=== PATIENT | female | born 1950 ===

== ENCOUNTER 2021-10-26 13:18 | Inpatient (IN) ==
[2021-10-26] MEDS ORDERED: 0.9 % Sodium Chloride 1,000 ML IVC ONE (14:03)
[2021-10-26 14:36] LABS: Hematocrit 35.3 % (35.3-44.9); Hemoglobin 11.5 g/dL (11.5-15.4); Mean Corpuscular HGB Conc 32.6 g/dL (31.6-35.5); Mean Corpuscular Hemoglobin 30.9 pg (28.0-33.3); Mean Corpuscular Volume 94.9 fL (83.0-100.0); Mean Platelet Volume 10.7 fL (9.4-12.4); Platelet Count 268 K/mcL (140-400); Red Blood Count 3.72 M/mcL (3.82-4.97); Red Cell Distribution Width 15.9 % (11.5-14.5); White Blood Count 12.7 K/mcL (4.3-11.1)
[2021-10-26] MEDS ORDERED: 0.9 % Sodium Chloride 500 ML IVC ONE ×2 (14:54→16:03)
[2021-10-26] MEDS ORDERED: Azithromycin 500 MG in D5% in Water 250 ML IVPB ONE (14:55)
[2021-10-26] MEDS ORDERED: cefTRIAXone 1,000 MG in 0.9 % Sodium Chloride Mini Bag 100 ML IVPB STA (14:55)
[2021-10-26 14:58] LABS: Monocytes # 0.1 K/mcL (0.0-1.3); Neutrophils # 10.7 K/mcL (1.6-8.9)
[2021-10-26 14:59] LABS: Platelet Estimate Normal (Normal)
[2021-10-26 15:11] LABS: Amorphous Sediment,Urine Few per hpf (None-Few); Bacteria,Urine Few per hpf (None-Few); Bilirubin,Urine Negative (Negative); Blood,Urine Moderate (Negative); Clarity,Urine Turbid (Clear); Color,Urine Yellow (Yellow); Glucose,Urine (UA) Normal (Normal); Hyaline Casts,Urine Many per lpf (None Seen); Ketones,Urine Negative (Negative); Leukocyte Esterase,Urine Moderate (Negative); Mucus,Urine Few per lpf (None-Few); Nitrite,Urine Negative (Negative); PH,Urine 5.5 pH Units (5.0-8.0); Protein,Urine 50 mg/dL (Neg-Trace); Specific Gravity,Urine 1.024 (1.010-1.025); Squamous Epithelial Cell,Urine Few per hpf (None-Few)
[2021-10-26 15:29] LABS: Alanine Aminotransferase 37 Units/L (7-52); Albumin 3.4 g/dL (3.5-5.7); Albumin/Globulin Ratio 0.9 (1.1-2.2); Alkaline Phosphatase 96 Units/L (34-104); Aspartate Amino Transferase 51 Units/L (13-39); BUN/Creatinine Ratio 24 (6-26); Bilirubin,Direct 0.2 mg/dL (0.0-0.2); Bilirubin,Indirect 0.6 mg/dL (0.0-1.0); Bilirubin,Total 0.8 mg/dL (0.3-1.0); Blood Urea Nitrogen 45 mg/dL (8-23); Calcium 10.7 mg/dL (8.6-10.3); Carbon Dioxide 26 mEq/L (23-29); Chloride 97 mEq/L (98-107); Ethanol < 10 mg/dL (Less than 10); Globulin 3.8 g/dL (2.4-3.5); Glucose 120 mg/dL (70-105); Osmolality,Calculated 303 (280-300); Potassium 4.3 mEq/L (3.5-5.1); Sodium 140 mEq/L (136-145); Total Protein 7.2 g/dL (6.4-8.9); Troponin I < 0.03 ng/mL (< 0.04); eGFR For African Americans 32 (> 60); eGFR For Non-African Americans 26 (> 60)
[2021-10-26 15:39] LABS: Amphetamine Screen,Urine Negative ng/mL (Cutoff=1000); Barbiturate Screen,Urine Negative ng/mL (Cutoff=200); Benzodiazepines Screen,Urine Negative ng/mL (Cutoff=200); Cannabinoid Screen,Urine Negative ng/mL (Cutoff = 50); Cocaine Screen,Urine Negative ng/mL (Cutoff= 300); Opiate Screen,Urine Negative ng/mL (Cutoff=300); Phencyclidine Screen,Urine Negative ng/mL (Cutoff=25)
[2021-10-26 16:31] LABS: Influenza A PCR Negative (Negative); Influenza B PCR Negative (Negative); Resp. Syncytial Virus PCR Negative (Negative)
[2021-10-26 16:32] LABS: SARS-CoV-2 by PCR (In House) Negative (Negative)
[2021-10-26] MEDS: Morphine Sulfate 2 MG/ML SYRINGE IVP PRN (20:07)
[2021-10-27] MEDS: *HR* LORazepam 2 MG/ML VIAL IVP PRN ×4 (01:48→21:26)
[2021-10-27] MEDS: Morphine Sulfate 2 MG/ML SYRINGE IVP PRN ×3 (08:23→21:29)
[2021-10-27] MEDS ORDERED: Ipratropium/Albuterol Neb 3 ML IH PRN (08:48)
[2021-10-27] MEDS: QUEtiapine Fumarate 100 MG TABLET PO SCH ×2 (08:59→19:32)
[2021-10-27] MEDS: QUEtiapine Fumarate 25 MG TABLET PO SCH ×2 (08:59→19:32)
[2021-10-27] MEDS ORDERED: Atropine Sulfate 1% 40 DROP/2 ML BOTTLE SL PRN (10:33)
[2021-10-27] MEDS ORDERED: Haloperidol Lactate 5 MG/ML VIAL IVP PRN (10:52)
[2021-10-27] MEDS ORDERED: cefTRIAXone 1,000 MG in 0.9 % Sodium Chloride Mini Bag 100 ML IVPB SCH (16:00)
[2021-10-28] MEDS: Morphine Sulfate 2 MG/ML SYRINGE IVP PRN ×4 (02:25→20:41)
[2021-10-28] MEDS: *HR* LORazepam 2 MG/ML VIAL IVP PRN ×4 (02:26→20:40)
[2021-10-28] MEDS: *HR* Enoxaparin 30 MG/0.3 ML SYRINGE SQ SCH (05:40)
[2021-10-28] MEDS ORDERED: *HR* Enoxaparin 40 MG/0.4 ML SYRINGE SQ SCH (06:00)
[2021-10-28] MEDS: QUEtiapine Fumarate 25 MG TABLET PO SCH ×2 (07:08→19:24)
[2021-10-28] MEDS: QUEtiapine Fumarate 100 MG TABLET PO SCH ×2 (07:08→19:25)
[2021-10-28] MEDS ORDERED: Acetaminophen IV 500 MG/50 ML BAG IVPB ONE ×2 (08:14→17:26)
[2021-10-28 13:47] LABS: CTX-M ESBL Gene Not Detected (Not Detect); IMP Carbapenem-Resist Gene Not Detected (Not Detect); NDM Carbapenem-Resist Gene Not Detected (Not Detect); OXA-48-like Carbap-Resist Gene Not Detected (Not Detect); blaKPC Carbapenem-Resist Gene Not Detected (Not Detect)
[2021-10-28 13:48] LABS: A.calcoaceticus-baumannii cplx Not Detected (Not Detect); Bacteroides fragilis by PCR Not Detected (Not Detect); Candida albicans by PCR Not Detected (Not Detect); Candida auris by PCR Not Detected (Not Detect); Candida glabrata by PCR Not Detected (Not Detect); Candida krusei by PCR Not Detected (Not Detect); Candida parapsilosis by PCR Not Detected (Not Detect); Candida tropicalis by PCR Not Detected (Not Detect); Crypto. neoformans/gattii PCR Not Detected (Not Detect); Enterobacter cloacae Cmplx PCR Not Detected (Not Detect); Enterobacterales by PCR Not Detected (Not Detect); Enterococcus faecalis by PCR Not Detected (Not Detect); Enterococcus faecium by PCR Not Detected (Not Detect); Escherichia coli by PCR Not Detected (Not Detect); Klebs. pneumoniae group by PCR Not Detected (Not Detect); Klebsiella aerogenes by PCR Not Detected (Not Detect); Klebsiella oxytoca by PCR Not Detected (Not Detect); Proteus by PCR Not Detected (Not Detect); Pseudomonas aeruginosa by PCR Not Detected (Not Detect); Salmonella species by PCR Not Detected (Not Detect); Serratia marcescens by PCR Not Detected (Not Detect); Staph epidermidis by PCR Not Detected (Not Detect); Staph lugdunensis by PCR Not Detected (Not Detect); Staphylococcus aureus by PCR Not Detected (Not Detect); Staphylococcus by PCR DETECTED (Not Detect); Stenotrophomonas maltophilia Not Detected (Not Detect); Streptococcus agalactiae(B)PCR Not Detected (Not Detect); Streptococcus by PCR Not Detected (Not Detect); Streptococcus pneumoniae PCR Not Detected (Not Detect); Streptococcus pyogenes (A) PCR Not Detected (Not Detect); VIM Carbapenem-Resist Gene Not Detected (Not Detect); mcr-1 Colistin-Resist Gene Not Detected (Not Detect); mecA/C & MREJ (MRSA) Gene Not Detected (Not Detect); mecA/C Methicillin-Resist Gene Not Detected (Not Detect); vanA/B Vancomycin-Resist Genes Not Detected (Not Detect)
[2021-10-29] MEDS ORDERED: Acetaminophen IV 1,000 MG/100 ML BAG IVPB ONE (00:24)
[2021-10-29] MEDS: *HR* LORazepam 2 MG/ML VIAL IVP PRN ×2 (00:49→06:27)
[2021-10-29] MEDS: Morphine Sulfate 2 MG/ML SYRINGE IVP PRN ×3 (00:49→10:37)
[2021-10-29] MEDS: *HR* Enoxaparin 30 MG/0.3 ML SYRINGE SQ SCH (06:20)
[2021-10-29 07:49] VITALS: BP 89/50; PULSE 101; TEMP 103; O2SAT 77
[2021-10-29] MEDS: QUEtiapine Fumarate 25 MG TABLET PO SCH (08:45)
[2021-10-29] MEDS: QUEtiapine Fumarate 100 MG TABLET PO SCH (08:46)
[2021-10-29] MEDS ORDERED: Acetaminophen 650 MG RECTAL SUPP RC PRN (10:59)
== END 2021-10-29 11:28 | disposition hospice, inpatient (51) | DRG 871 ==
LOC: EMEROOARM 13:18 → 2ANU 18:13
PROVIDERS: ADMIT Internal Medicine; ATTEND Internal Medicine

== ENCOUNTER 2021-10-29 11:02 | Inpatient (IN) ==
[2021-10-29] MEDS ORDERED: Haloperidol Oral Conc 10 MG/5 ML UDC PO PRN (11:59)
[2021-10-29] MEDS ORDERED: Acetaminophen 650 MG RECTAL SUPP RC PRN (11:59)
[2021-10-29] MEDS ORDERED: Morphine Sulfate 2 MG/ML SYRINGE IVP PRN ×2 (11:59→12:05)
[2021-10-29] MEDS ORDERED: *HR* LORazepam 2 MG/ML VIAL IVP PRN (12:04)
[2021-10-29] MEDS: Lacri-Lube 3.5 GM TUBE BOTH EYES SCH ×2 (14:21→21:51)
[2021-10-29 20:08] VITALS: BP 90/52; PULSE 95; O2SAT 87
[2021-10-30 03:50] VITALS: TEMP 103.2
== END 2021-10-30 03:57 | disposition expired | DRG 951 ==
LOC: 2ANU 12:00
PROVIDERS: ADMIT Internal Medicine Hospice and Palliative Medicine; ATTEND Internal Medicine Hospice and Palliative Medicine